=== PATIENT | female | born 1930 | race Caucasian/White ===

== ENCOUNTER 2016-09-15 10:47 | Inpatient (IN) | payer MEDICARE, OTHER ==
[2016-09-15 12:01] LABS: HEMATOCRIT 34.7 % (36.0-47.0); HEMOGLOBIN 11.9 g/dL (12.0-15.5); MEAN CORPUSCULAR HEMOGLOBIN 28.7 pg (27.0-33.4); MEAN CORPUSCULAR HGB CONC 34.4 g/dL (32.0-36.0); MEAN CORPUSCULAR VOLUME 83 fl (80-97); RED BLOOD COUNT 4.16 10^6/uL (3.72-5.28); RED CELL DISTRIBUTION WIDTH 13.6 % (11.5-14.0); WHITE BLOOD COUNT 11.4 10^3/uL (4.0-10.5)
[2016-09-15] MEDS: NORMAL SALINE 1000 ML 1,000 ML IV PRN (12:01)
[2016-09-15 12:13] LABS: ALANINE AMINOTRANSFERASE 48 U/L (9-52); ALBUMIN 3.5 g/dL (3.5-5.0); ALKALINE PHOSPHATASE 73 U/L (38-126); ASPARTATE AMINO TRANSFERASE 70 U/L (14-36); BILIRUBIN,DIRECT 0.4 mg/dL (0.0-0.4); BILIRUBIN,TOTAL 0.7 mg/dL (0.2-1.3); BLOOD UREA NITROGEN 15 mg/dL (7-20); CARBON DIOXIDE 28 mmol/L (22-30); CHLORIDE 79 mmol/L (98-107); CREATININE RESULT 0.79 mg/dL (0.52-1.25); GLUCOSE 106 mg/dL (75-110); POTASSIUM 3.4 mmol/L (3.6-5.0); TOTAL PROTEIN 6.6 g/dL (6.3-8.2)
[2016-09-15 12:29] LABS: ANION GAP 14 (5-19)
[2016-09-15 12:32] LABS: SODIUM 121.4 mmol/L (137-145)
[2016-09-15 12:44] LABS: THYROID STIMULATING HORMONE 3.48 uIU/mL (0.47-4.68)
--- NOTE | 2016-09-15 13:55 | RADIOLOGY REPORT (SQ) ---
EXAM DESCRIPTION: CHEST PA/LAT COMPLETED DATE/TIME: 09/15/2016 1:10 pm REASON FOR STUDY: CHF COMPARISON: Two-view chest 11/03/2009 EXAM PARAMETERS: NUMBER OF VIEWS: two views TECHNIQUE: Digital Frontal and Lateral radiographic views of the chest acquired. RADIATION DOSE: NA LIMITATIONS: none FINDINGS: LUNGS AND PLEURA: Minimal atelectasis or fluid in the right and left the lateral and poste rior costophrenic sulci. No fluffy alveolar infiltrates worrisome for alveolar edema. No Patsy lines worrisome for interstitial edema. No pneumothorax or pulmonary nodules. No dense consolidation worrisome for pneumonia. MEDIASTINUM AND HILAR STRUCTURES: No masses or contour abnormalities. HEART AND VASCULAR STRUCTURES: No cardiomegaly BONES: No acute findings. HARDWARE: None in the chest. OTHER: No other significant finding. IMPRESSION: Minimal opacification of the right and left lateral and posterior costophrenic sulci, tr magnolia pleural fluid versus atelectasis. TECHNICAL DOCUMENTATION: JOB ID: [id number] [employer]- All Rights Reserved
[2016-09-15 17:15] LABS: APPEARANCE,URINE CLEAR; BILIRUBIN,URINE NEGATIVE (NEGATIVE); GLUCOSE, URINE NEGATIVE (NEGATIVE); KETONES,URINE NEGATIVE (NEGATIVE); LEUKOCYTE ESTERASE,URINE TRACE (NEGATIVE); NITRITE,URINE NEGATIVE (NEGATIVE); PROTEIN,URINE NEGATIVE (NEGATIVE); URINE SPECIFIC GRAVITY 1.003; UROBILINOGEN,URINE NEGATIVE mg/dL (<2.0)
[2016-09-15] MEDS ORDERED: [UNRECOGNIZED DRUG - OTHER] PO SCH (17:15)
[2016-09-15] MEDS ORDERED: ASCORBATE CALCIUM PO SCH (17:15)
[2016-09-15 17:31] LABS: URINE CREATININE 26.3 mg/dL (15-278); URINE PROTEIN 28.1 mg/dL (<12)
[2016-09-15 17:34] LABS: URINE CREATININE 26.3 mg/dL (15-278); URINE PROTEIN 28.1 mg/dL (<12)
[2016-09-15] MEDS: METOPROLOL TARTRATE 50 MG TABLET PO SCH (17:41)
[2016-09-15] MEDS ORDERED: LANSOPRAZOLE 30 MG TAB.RAP.DR PO ONE (18:00)
--- NOTE | 2016-09-15 18:03 | XCELERA REPORT ---
[address] [address] Transthoracic Echocardiogram Report Name: WILBERT LOERA Age: 86 yrs Gender: Female : 1930 Patient Status: Inpatient Patient Location: 3S\S\327\S\A Study Date: 09/15/2016 02:32 PM Height: 63 in Weight: 160 lb BSA: 1.8 m2 Procedure: A complete two-dimensional transthoracic echocardiogram was performed (2D, M-mode, spectral and color flow Doppler). The study was technically difficult with many images being suboptimal in quality. Reason For Study: CHF Ordering Physician: MIGUEL SHAW Performed By: Alaina Kinney Interpretation Summary The left ventricular ejection fraction is normal. There is mild concentric left ventricular hypertrophy. Doppler measurements suggest impaired left ventricular relaxation, which is associated with grade I/IV or mild diastolic dysfunction The left ventricle is grossly normal size. Wall motion cannot be accurately commented on, but no definite regional wall motion abnormalities noted. The right atrium is normal in size The left atrial size is normal. The right ventricular systolic function is normal. There is no mitral valve stenosis. There is a mild amount of mitral regurgitation No aortic regurgitation is present. There is no aortic valve stenosis There is a trace or physiologic amount of tricuspid regurgitation Tricuspid regurgitation jet envelope not well defined to measure RV systolic pressure accurately. The aortic root is not well visualized but is probably normal size. The inferior vena cava appeared normal and decreased > 50% with respiration (RAP 5-10 mmHg) There is no pericardial effusion. MMode/2D Measurements \T\ Calculations RVDd: 2.4 cm LVIDd: 4.5 cm FS: 39.6 % Ao root diam: 2.9 cm IVSd: 1.1 cm LVIDs: 2.7 cm EDV(Teich): 92.1 ml LVPWd: 1.1 cm ESV(Teich): 27.4 ml Ao root area: 6.4 cm2 EF(Teich): 70.3 % LA dimension: 3.4 cm LVOT diam: 2.0 cm LVOT area: 3.1 cm2 Doppler Measurements \T\ Calculations MV E max carlos: MV P1/2t max carlos: Ao V2 max: LV V1 max P.0 cm/sec 77.0 cm/sec 147.2 cm/sec 5.2 mmHg MV A max carlos: MV P1/2t: 62.9 msec Ao max PG: LV V1 max: 102.7 cm/sec MVA(P1/2t): 3.5 cm2 8.7 mmHg 113.5 cm/sec MV E/A: 0.73 MV dec slope: JONE(V,D): 2.4 cm2 358.8 cm/sec2 TV V2 max: PA V2 max: 246.1 cm/sec 123.1 cm/sec TV max PG: PA max P.1 mmHg 24.2 mmHg Left Ventricle The left ventricle is grossly normal size. There is mild concentric left ventricular hypertrophy. The left ventricular ejection fraction is normal. Doppler measurements suggest impaired left ventricular relaxation, which is associated with grade I/IV or mild diastolic dysfunction. Wall motion cannot be accurately commented on, but no definite regional wall motion abnormalities noted. Right Ventricle The right ventricle is grossly normal size. There is normal right ventricular wall thickness. The right ventricular systolic function is normal. Atria The right atrium is normal in size. The left atrial size is normal. Interarterial septum not well visualized and not well dopplered. Cannot comment on ASD/PFO presence. Mitral Valve The mitral valve is grossly normal. There is no mitral valve stenosis. There is a mild amount of mitral regurgitation. Aortic Valve The aortic valve is grossly normal. There is no aortic valve stenosis. No aortic regurgitation is present. Tricuspid Valve The tricuspid valve is not well visualized, but is grossly normal. There is no tricuspid stenosis. There is a trace or physiologic amount of tricuspid regurgitation. Tricuspid regurgitation jet envelope not well defined to measure RV systolic pressure accurately. Pulmonic Valve The pulmonic valve is not well visualized. Great Vessels The aortic root is not well visualized but is probably normal size. The inferior vena cava appeared normal and decreased > 50% with respiration (RAP 5-10 mmHg). Effusions There is no pericardial effusion. : MIGUEL SHAW > Chelsy Swann
[2016-09-15] MEDS: SIMVASTATIN 10 MG TABLET PO SCH (21:08)
[2016-09-16 05:02] LABS: ANION GAP 11 (5-19); BLOOD UREA NITROGEN 10 mg/dL (7-20); CALCIUM 8.6 mg/dL (8.4-10.2); CARBON DIOXIDE 30 mmol/L (22-30); CHLORIDE 82 mmol/L (98-107); CREATININE RESULT 0.65 mg/dL (0.52-1.25); GLUCOSE 104 mg/dL (75-110); SODIUM 123.1 mmol/L (137-145)
[2016-09-16 05:06] LABS: POTASSIUM 2.9 mmol/L (3.6-5.0)
[2016-09-16] MEDS: METOPROLOL TARTRATE 50 MG TABLET PO SCH ×2 (05:47→16:46)
[2016-09-16] MEDS: POTASSIUM CHLORIDE 10 MEQ TABLET.SA PO SCH ×3 (06:08→14:00)
[2016-09-16] MEDS: LANSOPRAZOLE 30 MG TAB.RAP.DR PO SCH ×2 (07:42→16:46)
[2016-09-16] MEDS: CALCIUM CARBONATE 250 MG/VITAMIN D3 125 UNIT TABLET PO SCH (10:16)
[2016-09-16] MEDS: NIFEDIPINE 30 MG TAB.ER.24 PO SCH (10:18)
--- NOTE | 2016-09-16 11:35 | PDOC H&P ---
History of Present Illness Admission Date/PCP: 09/16/16 02:01 MIGUEL SHAW MD History of Present Illness: WILBERT LOERA is a 86 year old female, she has a history of hypertension, she came to the office with her spouse with multiple complaints including, dizziness , confusion, balance and gait disturbance. Patient spouse was concerned that she may have pulmonary embolism, he said when she pulmonary embolism years ago she presented in a similar fashion. Metabolic panel was done outpatient and it showed severe hyponatremia with sodium of 120, she was admitted directly from outpatient into the hospital. She is euvolemic, a 2D echo was done because of elevated BNP, 2D echo showed ejection fraction of left ventricle.The serum osmolality was low, the urine osmolality was elevated . This is consistent with syndrome of inappropriate secretion of antidiuretic hormone. Past Medical History Cardiac Medical History: Reports: DVT, Hyperlipidema, Hypertension, Pulmonary Embolism - ONPLAVIX SINCE 2002. GI Medical History: Reports: Diverticulitis Social History Smoking Status: Never Smoker Hx Recreational Drug Use: No Drugs: None Hx Prescription Drug Abuse: No - Advance Directive Resuscitation Status: Full Code Family History Family History: Reviewed & Not Pertinent Parental Family History Reviewed: Yes Children Family History Reviewed: Yes Sibling(s) Family History Reviewed.: Yes Medication/Allergy Home Medications: Ascorbate Calcium/Bioflav [Zee-C 500 mg Tablet] 1 each PO DAILY 02/16/12 Calcium Carbonate/Vitamin D3 [Calcium 600 + Vit D 400 Caplet] 1 each PO Q12 17/04 Cholecalciferol (Vitamin D3) [Vitamin D-400] 400 unit PO DAILY 02/16/12 Hydrochlorothiazide 25 mg PO DAILY 02/16/12 Krill Oil/[place]-3/Dha/Epa [[place]-3 Krill Oil Softgel] 1 each PO DAILY 02/16/12 Metoprolol Tartrate [Lopressor 50 mg Tablet] 25 mg PO Q12 02/16/12 Multivitamin [Tab-A-Hakan (Multiple Vitamin) Tablet] 1 tab PO DAILY 02/16/12 Nifedipine [Adalat CC 60 mg Tablet] 60 mg PO DAILY 02/16/12 Simvastatin [Zocor 10 mg Tablet] 10 mg PO QHS 02/16/12 Carboxymethylcellulose Sodium [Refresh Tears] 1 drop OP DAILYP PRN 09/16/16 Clopidogrel Bisulfate [Clopidogrel] 75 mg PO DAILY 09/16/16 Esomeprazole Magnesium [Nexium] 40 mg PO DAILY 09/16/16 Allergies/Adverse Reactions: DAVE Inhibitors [Dave Inhibitors] Allergy (Verified 04/29/13 13:56) ACEINHIBITORS [DAVE Inhibitors] Allergy (Verified 02/16/12 13:17) aspirin [Aspirin] Allergy (Verified 02/16/12 13:17) Review of Systems Constitutional: ABSENT: chills, fever(s), headache(s), weight gain, weight loss Eyes: ABSENT: visual disturbances Ears: ABSENT: hearing changes Cardiovascular: ABSENT: chest pain, dyspnea on exertion, edema, orthropnea, palpitations Respiratory: ABSENT: cough, hemoptysis Gastrointestinal: ABSENT: abdominal pain, constipation, diarrhea, hematemesis, hematochezia, nausea, vomiting Genitourinary: ABSENT: dysuria, hematuria Musculoskeletal: ABSENT: joint swelling Integumentary: ABSENT: rash, wounds Neurological: PRESENT: dizziness Psychiatric: ABSENT: anxiety, depression, homidical ideation, suicidal ideation Endocrine: ABSENT: cold intolerance, heat intolerance, menstrual abnormalities, polydipsia, polyuria Hematologic/Lymphatic: ABSENT: easy bleeding, easy bruising, lymphadenopathy Physical Exam Vital Signs: Temp Pulse Resp BP Pulse Ox 98.7 F 81 19 129/53 H 95 09/16/16 07:40 09/16/16 07:40 09/16/16 07:40 09/16/16 07:40 09/16/16 07:40 Intake & Output 09/15/16 09/16/16 09/17/16 06:59 06:59 06:59 Intake Total 1380 Output Total 2350 Balance -970 Weight 72.1 kg General appearance: PRESENT: no acute distress, well-developed, well-nourished Head exam: PRESENT: atraumatic, normocephalic Eye exam: PRESENT: conjunctiva pink, EOMI, PERRLA Ear exam: PRESENT: normal external ear exam Mouth exam: PRESENT: moist, tongue midline Neck exam: PRESENT: full ROM Respiratory exam: PRESENT: clear to auscultation matt Cardiovascular exam: PRESENT: RRR, +S1, +S2 Vascular exam: PRESENT: normal capillary refill GI/Abdominal exam: PRESENT: normal bowel sounds, soft Rectal exam: PRESENT: deferred Neurological exam: PRESENT: alert, awake, oriented to person, oriented to place , oriented to time, oriented to situation, CN II-XII grossly intact Psychiatric exam: PRESENT: appropriate affect, normal mood Skin exam: PRESENT: dry, intact, warm Results Laboratory Results: 09/15/16 11:36 09/16/16 04:28 09/15/16 09/15/16 09/15/16 11:36 11:36 11:36 WBC 11.4 H RBC 4.16 Hgb 11.9 L Hct 34.7 L MCV 83 MCH 28.7 MCHC 34.4 RDW 13.6 Plt Count 399 Sodium 121.4 L Potassium 3.4 L Chloride 79 L Carbon Dioxide 28 Anion Gap 14 BUN 15 Creatinine 0.79 Est GFR ( Amer) > 60 Est GFR (Non-Af Amer) > 60 Glucose 106 Serum Osmolality Cancelled Calcium 9.0 Total Bilirubin 0.7 AST 70 H ALT 48 Alkaline Phosphatase 73 Total Protein 6.6 Albumin 3.5 TSH Free T4 Urine Color Urine Appearance Urine pH Ur Specific [place] Urine Protein Urine Glucose (UA) Urine Ketones Urine Blood Urine Nitrite Ur Leukocyte Esterase Urine WBC (Auto) Urine Osmolality 09/15/16 09/15/16 09/15/16 11:36 14:22 17:00 WBC RBC Hgb Hct MCV MCH MCHC RDW Plt Count Sodium Potassium Chloride Carbon Dioxide Anion Gap BUN Creatinine Est GFR ( Amer) Est GFR (Non-Af Amer) Glucose Serum Osmolality 248 L Calcium Total Bilirubin AST ALT Alkaline Phosphatase Total Protein Albumin TSH 3.48 Free T4 1.60 Urine Color STRAW Urine Appearance CLEAR Urine pH 6.0 Ur Specific [place] 1.003 Urine Protein NEGATIVE Urine Glucose (UA) NEGATIVE Urine Ketones NEGATIVE Urine Blood NEGATIVE Urine Nitrite NEGATIVE Ur Leukocyte Esterase TRACE H Urine WBC (Auto) 6 Urine Osmolality 09/15/16 09/16/16 17:00 04:28 WBC RBC Hgb Hct MCV MCH MCHC RDW Plt Count Sodium 123.1 L Potassium 2.9 L* Chloride 82 L Carbon Dioxide 30 Anion Gap 11 BUN 10 Creatinine 0.65 Est GFR ( Amer) > 60 Est GFR (Non-Af Amer) > 60 Glucose 104 Serum Osmolality Calcium 8.6 Total Bilirubin AST ALT Alkaline Phosphatase Total Protein Albumin TSH Free T4 Urine Color Urine Appearance Urine pH Ur Specific [place] Urine Protein Urine Glucose (UA) Urine Ketones Urine Blood Urine Nitrite Ur Leukocyte Esterase Urine WBC (Auto) Urine Osmolality 177 L 09/15/16 11:36 NT-Pro-B Natriuret Pep 857 H Impressions: Chest X-Ray 09/15/16 00:00 IMPRESSION: Minimal opacification of the right and left lateral and posterior costophrenic sulci, trace pleural fluid versus atelectasis. 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
--- NOTE | 2016-09-16 11:46 | PDOC PROGRESS REPORT ---
Subjective Progress Note for:: 09/16/16 Subjective:: Patient was admitted yesterday because of severe hyponatremia, family was in the room, I explained to the family about her condition, the serum sodium is up to 123, Physical Exam Vital Signs: Temp Pulse Resp BP Pulse Ox 98.7 F 81 19 129/53 H 95 09/16/16 07:40 09/16/16 07:40 09/16/16 07:40 09/16/16 07:40 09/16/16 07:40 Intake & Output 09/15/16 09/16/16 09/17/16 06:59 06:59 06:59 Intake Total 1380 Output Total 2350 Balance -970 Weight 72.1 kg General appearance: PRESENT: no acute distress Eye exam: PRESENT: PERRLA Respiratory exam: PRESENT: clear to auscultation matt Cardiovascular exam: PRESENT: +S1, +S2 GI/Abdominal exam: PRESENT: soft Neurological exam: PRESENT: alert, CN II-XII grossly intact Results Laboratory Results: 09/15/16 11:36 09/16/16 04:28 09/15/16 09/15/16 09/15/16 11:36 11:36 11:36 WBC 11.4 H RBC 4.16 Hgb 11.9 L Hct 34.7 L MCV 83 MCH 28.7 MCHC 34.4 RDW 13.6 Plt Count 399 Sodium 121.4 L Potassium 3.4 L Chloride 79 L Carbon Dioxide 28 Anion Gap 14 BUN 15 Creatinine 0.79 Est GFR ( Amer) > 60 Est GFR (Non-Af Amer) > 60 Glucose 106 Serum Osmolality Cancelled Calcium 9.0 Total Bilirubin 0.7 AST 70 H ALT 48 Alkaline Phosphatase 73 Total Protein 6.6 Albumin 3.5 TSH Free T4 Urine Color Urine Appearance Urine pH Ur Specific [place] Urine Protein Urine Glucose (UA) Urine Ketones Urine Blood Urine Nitrite Ur Leukocyte Esterase Urine WBC (Auto) Urine Osmolality 09/15/16 09/15/16 09/15/16 11:36 14:22 17:00 WBC RBC Hgb Hct MCV MCH MCHC RDW Plt Count Sodium Potassium Chloride Carbon Dioxide Anion Gap BUN Creatinine Est GFR ( Amer) Est GFR (Non-Af Amer) Glucose Serum Osmolality 248 L Calcium Total Bilirubin AST ALT Alkaline Phosphatase Total Protein Albumin TSH 3.48 Free T4 1.60 Urine Color STRAW Urine Appearance CLEAR Urine pH 6.0 Ur Specific [place] 1.003 Urine Protein NEGATIVE Urine Glucose (UA) NEGATIVE Urine Ketones NEGATIVE Urine Blood NEGATIVE Urine Nitrite NEGATIVE Ur Leukocyte Esterase TRACE H Urine WBC (Auto) 6 Urine Osmolality 09/15/16 09/16/16 17:00 04:28 WBC RBC Hgb Hct MCV MCH MCHC RDW Plt Count Sodium 123.1 L Potassium 2.9 L* Chloride 82 L Carbon Dioxide 30 Anion Gap 11 BUN 10 Creatinine 0.65 Est GFR ( Amer) > 60 Est GFR (Non-Af Amer) > 60 Glucose 104 Serum Osmolality Calcium 8.6 Total Bilirubin AST ALT Alkaline Phosphatase Total Protein Albumin TSH Free T4 Urine Color Urine Appearance Urine pH Ur Specific [place] Urine Protein Urine Glucose (UA) Urine Ketones Urine Blood Urine Nitrite Ur Leukocyte Esterase Urine WBC (Auto) Urine Osmolality 177 L 09/15/16 11:36 NT-Pro-B Natriuret Pep 857 H Impressions: Chest X-Ray 09/15/16 00:00 IMPRESSION: Minimal opacification of the right and left lateral and posterior costophrenic sulci, trace pleural fluid versus atelectasis. 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
[2016-09-16] MEDS: CHOLECALCIFEROL (D3) 400 UNIT TABLET PO SCH (13:59)
[2016-09-16] MEDS ORDERED: CARBOXYMETHYLCELLULOSE SOD 0.5% 0.4 ML DROPERETTE OU PRN (15:49)
--- NOTE | 2016-09-16 16:24 | XCELERA REPORT ---
[address] [address] Lower Extremity Venous Evaluation Name: WILBERT LOERA Age: 86 yrs Gender: Female : 1930 Patient Status: Inpatient Patient Location: 3S\S\327\S\A Study Date: 09/15/2016 03:28 PM Procedure: Color flow and duplex imaging bilaterally of the veins of the lower extremities as well as the Common Femoral veins. Reason For Study: lower extremity swelling Ordering Physician: MIGUEL SHAW Performed By: Alaina Kinney Right Sided Venous Evaluation Normal vessel filling wall to wall, compression and augmentation as well as Colour flow down to the infrageniculate veins. Left Sided Venous Evaluation Normal vessel filling wall to wall, compression and augmentation as well as Colour flow down to the infrageniculate veins. Interpretation Summary No duplex evidence of DVT or obstruction in the bilateral lower extremities. : MIGUEL SHAW > Zia Winter
[2016-09-16] MEDS: NORMAL SALINE 1000 ML 1,000 ML IV PRN (21:46)
[2016-09-16] MEDS: SIMVASTATIN 10 MG TABLET PO SCH (21:46)
[2016-09-17] MEDS: METOPROLOL TARTRATE 50 MG TABLET PO SCH (06:28)
[2016-09-17] MEDS: LANSOPRAZOLE 30 MG TAB.RAP.DR PO SCH (08:02)
[2016-09-17 09:12] LABS: HEMATOCRIT 38.8 % (36.0-47.0); HGB HCT DIFFERENCE 0.2; MEAN CORPUSCULAR HEMOGLOBIN 28.9 pg (27.0-33.4); MEAN CORPUSCULAR HGB CONC 33.6 g/dL (32.0-36.0); MEAN CORPUSCULAR VOLUME 86 fl (80-97); RED BLOOD COUNT 4.52 10^6/uL (3.72-5.28); RED CELL DISTRIBUTION WIDTH 13.9 % (11.5-14.0); WHITE BLOOD COUNT 12.9 10^3/uL (4.0-10.5)
[2016-09-17] MEDS: CALCIUM CARBONATE 250 MG/VITAMIN D3 125 UNIT TABLET PO SCH (09:23)
[2016-09-17] MEDS: NIFEDIPINE 30 MG TAB.ER.24 PO SCH (09:23)
[2016-09-17] MEDS: CHOLECALCIFEROL (D3) 400 UNIT TABLET PO SCH (09:23)
[2016-09-17 09:33] LABS: ANION GAP 13 (5-19); BLOOD UREA NITROGEN 10 mg/dL (7-20); CARBON DIOXIDE 27 mmol/L (22-30); CHLORIDE 86 mmol/L (98-107); CREATININE RESULT 0.62 mg/dL (0.52-1.25); GLUCOSE 106 mg/dL (75-110); POTASSIUM 4.2 mmol/L (3.6-5.0); SODIUM 125.6 mmol/L (137-145)
[2016-09-17] MEDS ORDERED: CLOPIDOGREL BISULFATE 75 MG TABLET PO SCH (10:00)
--- NOTE | 2016-09-17 12:02 | PDOC DISCHARGE SUMMARY ---
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 Is this a current diagnosis for this admission?: Yes (3) Essential hypertension Is this a current diagnosis for this admission?: Yes - Additional Information Resuscitation Status: Full Code Discharge Diet: As Tolerated Discharge Activity: Activity As Tolerated Home Medications: Ascorbate Calcium/Bioflav [Zee-C 500 mg Tablet] 1 each PO DAILY 02/16/12 Calcium Carbonate/Vitamin D3 [Calcium 600 + Vit D 400 Caplet] 1 each PO Q12 17/04 Cholecalciferol (Vitamin D3) [Vitamin D-400] 400 unit PO DAILY 02/16/12 Krill Oil/[place]-3/Dha/Epa [[place]-3 Krill Oil Softgel] 1 each PO DAILY 02/16/12 Metoprolol Tartrate [Lopressor 50 mg Tablet] 25 mg PO Q12 02/16/12 Multivitamin [Tab-A-Hakan (Multiple Vitamin) Tablet] 1 tab PO DAILY 02/16/12 Nifedipine [Adalat CC 60 mg Tablet] 60 mg PO DAILY 02/16/12 Simvastatin [Zocor 10 mg Tablet] 10 mg PO QHS 02/16/12 Carboxymethylcellulose Sodium [Refresh Tears] 1 drop OP DAILYP PRN 09/16/16 Clopidogrel Bisulfate [Clopidogrel] 75 mg PO DAILY 09/16/16 Esomeprazole Magnesium [Nexium] 40 mg PO DAILY 09/16/16 History of Present Illness History of Present Illness: WILBERT LOERA is a 86 year old female, she has a history of hypertension, she came to the office with her spouse with multiple complaints including, dizziness , confusion, balance and gait disturbance. Patient spouse was concerned that she may have pulmonary embolism, he said when she pulmonary embolism years ago she presented in a similar fashion. Metabolic panel was done outpatient and it showed severe hyponatremia with sodium of 120, she was admitted directly from outpatient into the hospital. She is euvolemic, a 2D echo was done because of elevated BNP, 2D echo showed ejection fraction of left ventricle.The serum osmolality was low, the urine osmolality was elevated . This is consistent with syndrome of inappropriate secretion of antidiuretic hormone. Hospital Course Hospital Course: Patient was admitted because of symptomatic hyponatremia, she is euvolemic, she has syndrome of inappropriate secretion of ADH. On admission the sodium was 120 , she was treated with normal saline at a low infusion rate to achieve serum sodium 125. She will be treated with fluid restriction at not more than 6, 8 ounces of water a day. Physical Exam Vital Signs: Temp Pulse Resp BP Pulse Ox 98.3 F 83 20 127/53 H 97 09/17/16 08:26 09/17/16 08:26 09/17/16 08:26 09/17/16 08:26 09/17/16 08:26 Intake & Output 09/16/16 09/17/16 09/18/16 06:59 06:59 06:59 Intake Total 1380 2158 Output Total 2350 1500 Balance -970 658 Weight 72.1 kg 72.2 kg General appearance: PRESENT: no acute distress, well-developed, well-nourished Head exam: PRESENT: atraumatic, normocephalic Eye exam: PRESENT: conjunctiva pink, EOMI, PERRLA Ear exam: PRESENT: normal external ear exam Mouth exam: PRESENT: moist, tongue midline Neck exam: PRESENT: full ROM Respiratory exam: PRESENT: clear to auscultation matt Cardiovascular exam: PRESENT: RRR, +S1, +S2 Pulses: PRESENT: normal dorsalis pedis pul, +2 pedal pulses bilateral Vascular exam: PRESENT: normal capillary refill GI/Abdominal exam: PRESENT: normal bowel sounds, soft Rectal exam: PRESENT: deferred Neurological exam: PRESENT: alert, awake, oriented to person, oriented to place , oriented to time, oriented to situation, CN II-XII grossly intact Psychiatric exam: PRESENT: appropriate affect, normal mood Skin exam: PRESENT: dry, intact, warm Results Laboratory Results: 09/17/16 09:05 09/17/16 09:05 09/17/16 09/17/16 09:05 09:05 WBC 12.9 H RBC 4.52 Hgb 13.0 Hct 38.8 MCV 86 MCH 28.9 MCHC 33.6 RDW 13.9 Plt Count 468 H Sodium 125.6 L Potassium 4.2 Chloride 86 L Carbon Dioxide 27 Anion Gap 13 BUN 10 Creatinine 0.62 Est GFR ( Amer) > 60 Est GFR (Non-Af Amer) > 60 Glucose 106 Calcium 9.0 09/15/16 11:36 NT-Pro-B Natriuret Pep 857 H Impressions: Chest X-Ray 09/15/16 00:00 IMPRESSION: Minimal opacification of the right and left lateral and posterior costophrenic sulci, trace pleural fluid versus atelectasis.
[2016-09-17 13:08] VITALS: BP 139/66
== END 2016-09-17 13:10 | disposition home or self-care (01) | DRG 645 ==
LOC: 3S 10:47 → UNDOADMOB 10:47 → 3S 09-16 02:01 → OBSVTOIN 09-17 08:54
PROVIDERS: ADMIT Internal Medicine; ATTEND Internal Medicine
DX: E22.2 Syndrome of inappropriate secretion of antidiuretic hormone (principal); I10 Essential (primary) hypertension; Z86.711 Personal history of pulmonary embolism; Z86.718 Personal history of other venous thrombosis and embolism; E78.5 Hyperlipidemia, unspecified; Z79.02 Long term (current) use of antithrombotics/antiplatelets; Z79.82 Long term (current) use of aspirin; Z79.899 Other long term (current) drug therapy; Z88.8 Allergy status to other drugs, medicaments and biological substances
CPT/HCPCS: 36415; 71020; 80048; 80076; 81001; 82570; 83880; 83930; 83935; 84133; 84156; 84300; 84439; 84443; 85027; 85379; 93306; 93970; G0378; G0379; J3490; J7030

== ENCOUNTER 2019-05-09 17:13 | Inpatient (IN) | payer MEDICARE, OTHER ==
[2019-05-09] MEDS ORDERED: NORMAL SALINE 1000 ML 1,000 ML IV PRN (17:51)
[2019-05-09 19:01] LABS: ABSOLUTE LYMPHOCYTES (AUTO) 1.2 10^3/uL (0.5-4.7); ABSOLUTE MONOCYTES (AUTO) 0.9 10^3/uL (0.1-1.4); ABSOLUTE NEUT (AUTO) 7.5 10^3/uL (1.7-8.2); BASOPHILS % (AUTO) 0.2 % (0-2); EOSINOPHILS % (AUTO) 0.2 % (0-6); HEMATOCRIT 44.7 % (36.0-47.0); HEMOGLOBIN 16.2 g/dL (12.0-15.5); LYMPHOCYTES % (AUTO) 12.9 % (13-45); MEAN CORPUSCULAR HEMOGLOBIN 30.6 pg (27.0-33.4); MEAN CORPUSCULAR HGB CONC 36.2 g/dL (32.0-36.0); MEAN CORPUSCULAR VOLUME 85 fl (80-97); PLATELET COUNT 383 10^3/uL (150-450); RED BLOOD COUNT 5.29 10^6/uL (3.72-5.28); SEGMENTED NEUTROPHILS % (AUTO) 77.7 % (42-78); TOTAL CELLS COUNTED % (AUTO) 100 %; WHITE BLOOD COUNT 9.6 10^3/uL (4.0-10.5)
[2019-05-09 19:14] LABS: ANION GAP 14 (5-19); BLOOD UREA NITROGEN 14 mg/dL (7-20); CALCIUM 9.9 mg/dL (8.4-10.2); CARBON DIOXIDE 24 mmol/L (22-30); CHLORIDE 76 mmol/L (98-107); GLUCOSE 99 mg/dL (75-110)
[2019-05-09 19:31] LABS: FREE T4 (FREE THYROXINE) 1.2 ng/dL (0.78-2.19)
[2019-05-09 19:45] LABS: THYROID STIMULATING HORMONE 1.45 uIU/mL (0.47-4.68)
--- NOTE | 2019-05-09 20:03 | PDOC H&P ---
History of Present Illness Admission Date/PCP: 05/09/19 17:13 MIGUEL SHAW MD History of Present Illness: WILBERT LOERA is a 88 year old female, She was brought to the office by the and the daughter for evaluation of prolonged persistent cough, confusion, repeated fall. Patient's was particularly concerned that she may have pulmonary embolism, he said her behavior is similar to when she had pulmonary embolism previously. Patient was somewhat confused in the office, she was not able to relate most of her symptoms, most of the history was obtained from the and the daughter, she was in the wheelchair, typically she is very healthy she only come to the office once a year for annual wellness evaluation. I felt patient needed to be admitted to the hospital because of the acuity of her illness and because of her confusion. Though the oxygen saturat ion in the office was 92 to 95% despite the fact that on auscultation of the chest she sounds crackles/wheezing and rhonchi. The initial metabolic profile revealed severe hyponatremia, sodium 114.2. The serum osmolality is low but the urine osmolality is more than 100 consistent with SIADH in the context of normal extracellular volume.The family also stated that patient has been falling more frequently recently the last few days Past Medical History Cardiac Medical History: Reports: DVT, Hyperlipidema, Hypertension, Pulmonary Embolism - ONPLAVIX SINCE 2002. GI Medical History: Reports: Diverticulitis Social History Smoking Status: Former Smoker Electronic Cigarette use?: No Frequency of Alcohol Use: Rare Hx Recreational Drug Use: No Drugs: None Hx Prescription Drug Abuse: No Family History Family History: Reviewed & Not Pertinent Parental Family History Reviewed: Yes Children Family History Reviewed: Yes Sibling(s) Family History Reviewed.: Yes Medication/Allergy Home Medications: Cholecalciferol (Vitamin D3) [Vitamin D-400] 400 unit PO DAILY 02/16/12 Metoprolol Tartrate [Lopressor 50 mg Tablet] 25 mg PO Q12 02/16/12 Multivitamin [Tab-A-Hakan (Multiple Vitamin) Tablet] 1 tab PO DAILY 02/16/12 Nifedipine [Adalat CC 60 mg Tablet] 60 mg PO DAILY 02/16/12 Simvastatin [Zocor 10 mg Tablet] 10 mg PO QHS 02/16/12 Carboxymethylcellulose Sodium [Refresh Tears] 1 drop OP DAILYP PRN 09/16/16 Clopidogrel Bisulfate [Clopidogrel] 75 mg PO DAILY 09/16/16 Pantoprazole Sodium 40 mg PO QAM 05/09/19 Allergies/Adverse Reactions: DAVE Inhibitors [Dave Inhibitors] Allergy (Verified 04/29/13 13:56) ACEINHIBITORS [DAVE Inhibitors] Allergy (Verified 02/16/12 13:17) aspirin [Aspirin] Allergy (Verified 02/16/12 13:17) Review of Systems ROS unobtainable: Due to mental status Respiratory: PRESENT: cough Physical Exam Vital Signs: Temp Pulse Resp BP Pulse Ox 98.5 F 79 17 144/61 H 97 05/09/19 17:32 05/09/19 17:40 05/09/19 17:32 05/09/19 17:32 05/09/19 17:32 General appearance: PRESENT: mild distress Head exam: PRESENT: atraumatic, normocephalic Eye exam: PRESENT: PERRLA Mouth exam: PRESENT: moist Neck exam: PRESENT: full ROM Respiratory exam: PRESENT: crackles, rhonchi, wheezes Cardiovascular exam: PRESENT: RRR, +S1, +S2 Pulses: PRESENT: normal dorsalis pedis pul, +2 pedal pulses bilateral Vascular exam: PRESENT: normal capillary refill GI/Abdominal exam: PRESENT: normal bowel sounds, soft Rectal exam: PRESENT: deferred Neurological exam: PRESENT: CN II-XII grossly intact, other - She is alert but confused Skin exam: PRESENT: dry, intact, warm Results Laboratory Results: 05/09/19 18:18 05/09/19 18:26 05/09/19 05/09/19 05/09/19 18:18 18:18 18:26 WBC 9.6 RBC 5.29 H Hgb 16.2 H Hct 44.7 MCV 85 MCH 30.6 MCHC 36.2 H RDW 13.0 Plt Count 383 Seg Neutrophils % 77.7 Sodium 114.2 L* Potassium 4.0 Chloride 76 L Carbon Dioxide 24 Anion Gap 14 BUN 14 Creatinine 0.74 Est GFR ( Amer) > 60 Glucose 99 Calcium 9.9 TSH 1.45 Free T4 1.20 Assessment & Plan - Diagnosis (1) Aspiration pneumonia Qualifiers: Aspiration pneumonia type: unspecified Lung location: lower lobe of lung Is this a current diagnosis for this admission?: Yes Plan: The CT angiogram of the chest suggest aspiration pneumonia which is most likely the diagnosis in this case, she has severe hyponatremic encephalopathy, family said she has been very confused in the last few days she has been coughing consistently with repeated falls. When I saw her in the office she was coughing on auscultation of her chest there was crackles mixed with rhonchi and wheeze. The probable pathogen is anaerobic bacteria the antibiotic of choice will be ampicillin/sulbactam 1 g every 6 hours. 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
[2019-05-09] MEDS: NORMAL SALINE 1000 ML 1,000 ML IV PRN (20:07)
[2019-05-09] MEDS ORDERED: IPRATROPIUM/ALBUTEROL 0.5-2.5 MG/3 ML AMPUL NEB PRN (20:40)
[2019-05-09] MEDS ORDERED: NIFEDIPINE 60 MG PO SCH (21:30)
--- NOTE | 2019-05-09 21:33 | EKG REPORT ---
SEVERITY:- ABNORMAL ECG - SINUS RHYTHM MULTIFORM VENTRICULAR PREMATURE COMPLEXES NONSPECIFIC T ABNORMALITIES, LATERAL LEADS : Confirmed by: Latricia Westbrook MD 09-May-2019 21:32:47
[2019-05-09] MEDS ORDERED: ENOXAPARIN SODIUM INJ 80 MG/0.8 ML DISP.SYRIN SUBCUT SCH (22:00)
[2019-05-09] MEDS: METOPROLOL TARTRATE 50 MG TABLET PO SCH (22:35)
[2019-05-10 01:34] LABS: APPEARANCE,URINE SLIGHTLY-CLOUDY; BILIRUBIN,URINE NEGATIVE (NEGATIVE); COLOR,URINE YELLOW; GLUCOSE, URINE NEGATIVE (NEGATIVE); KETONES,URINE 20 mg/dL (NEGATIVE); LEUKOCYTE ESTERASE,URINE TRACE (NEGATIVE); NITRITE,URINE NEGATIVE (NEGATIVE); PROTEIN,URINE 100 mg/dL (NEGATIVE); URINE SPECIFIC GRAVITY 1.018; UROBILINOGEN,URINE NEGATIVE mg/dL (<2.0)
--- NOTE | 2019-05-10 01:39 | RADIOLOGY REPORT (SQ) ---
EXAM DESCRIPTION: [facility]: CT CHEST ANGIOGRAPHY WITHOUT THEN WITH IV CONTRAST CLINICAL HISTORY: 88 years Female; PNEUMONIA; TECHNIQUE: CT angiogram of the chest using intravenous contrast.. MIP reconstructions were performed. All CT scans at this facility use dose modulation, iterative reconstruction, and/or weight based dosing when appropriate to reduce radiation dose to as low as reasonably achievable. COMPARISON: None. FINDINGS: Chest: No filling defects in the central pulmonary arteries. There are several areas of subsegmental atelectasis in both lower lobes, with material seen in the distal bronchioles. No groundglass infiltrates. Mild bilateral apical scarring is noted. No pleural effusion or pneumothorax. Thoracic aorta: Mild scattered calcifications. No aneurysm or dissection. Mild to moderate coronary artery calcifications. No pericardial effusion. No mediastinal adenopathy. Chronic degenerative changes in the thoracic spine. No acute bone findings. Hiatal hernia is noted. No adjacent edema. IMPRESSION: 1. Patchy areas of atelectasis in both lower lobes, with endobronchial material suspicious for acute bronchitis. 2. No CT evidence for pulmonary embolism 3. Atherosclerosis, including coronary artery calcifications. 4. Hiatal hernia. Possibility of aspiration pneumonitis should be considered. Please correlate with recent clinical history.
[2019-05-10 02:54] LABS: URINE PROTEIN 76.7 mg/dL (<12)
[2019-05-10] MEDS ORDERED: AMPICILLIN SOD/SULBACTAM 3 GM VIAL IV PRN (03:36)
[2019-05-10] MEDS ORDERED: POLYVINYL ALCOHOL 1.4% OPH SOLN 15 ML OU PRN (03:45)
[2019-05-10] MEDS ORDERED: AMPICILLIN SODIUM/SULBACTAM NA 3 GM in NORMAL SALINE 100 ML IV ONE (03:45)
[2019-05-10 03:56] LABS: UR PRO/CREAT RATIO RESULT 1.4 mg/mg (0.0-0.2); URINE CREATININE 53.3 mg/dL (15-278); URINE PROTEIN 74.4 mg/dL (<12)
[2019-05-10] MEDS ORDERED: AMPICILLIN SOD/SULBACTAM 3 GM VIAL ONE (04:21)
[2019-05-10] MEDS: ENOXAPARIN SODIUM INJ 40 MG/0.4 ML DISP.SYRIN SUBCUT SCH (09:57)
[2019-05-10] MEDS: PANTOPRAZOLE SODIUM 40 MG TABLET.DR PO SCH (09:57)
[2019-05-10] MEDS: AMPICILLIN SODIUM/SULBACTAM NA 3 GM in NORMAL SALINE 100 ML IV SCH ×3 (09:57→21:26)
[2019-05-10] MEDS: MULTIVITAMIN TABLET PO SCH (09:58)
[2019-05-10] MEDS: METOPROLOL TARTRATE 50 MG TABLET PO SCH ×2 (09:58→21:27)
[2019-05-10] MEDS: CHOLECALCIFEROL (D3) 400 UNIT TABLET PO SCH (09:58)
[2019-05-10] MEDS: NIFEDIPINE 30 MG TAB.ER.24 PO SCH (09:58)
[2019-05-10] MEDS ORDERED: LEVOFLOXACIN 750 MG/D5W RTU 750 MG/150 ML RTUPB IV SCH (10:00)
[2019-05-10 10:48] LABS: ABSOLUTE LYMPHOCYTES (AUTO) 1.5 10^3/uL (0.5-4.7); TOTAL CELLS COUNTED % (AUTO) 100 %
[2019-05-10 10:57] LABS: ALBUMIN 3.7 g/dL (3.5-5.0); ALKALINE PHOSPHATASE 56 U/L (38-126); ASPARTATE AMINO TRANSFERASE 51 U/L (14-36); BILIRUBIN,DIRECT 0.3 mg/dL (0.0-0.4); BILIRUBIN,TOTAL 0.7 mg/dL (0.2-1.3); BLOOD UREA NITROGEN 11 mg/dL (7-20); CALCIUM 8.9 mg/dL (8.4-10.2); CARBON DIOXIDE 25 mmol/L (22-30); CHLORIDE 80 mmol/L (98-107); GLUCOSE 81 mg/dL (75-110); POTASSIUM 3.4 mmol/L (3.6-5.0); TOTAL PROTEIN 7.2 g/dL (6.3-8.2)
[2019-05-10 10:58] LABS: ANION GAP 13 (5-19)
[2019-05-10 11:04] LABS: ABSOLUTE NEUT (AUTO) 5.9 10^3/uL (1.7-8.2); BASOPHILS % (AUTO) 0.5 % (0-2); EOSINOPHILS % (AUTO) 0.3 % (0-6); HEMOGLOBIN 14.6 g/dL (12.0-15.5); LYMPHOCYTES % (AUTO) 18.3 % (13-45); MEAN CORPUSCULAR HEMOGLOBIN 30.3 pg (27.0-33.4); MEAN CORPUSCULAR HGB CONC 35.5 g/dL (32.0-36.0); MEAN CORPUSCULAR VOLUME 86 fl (80-97); MONOCYTES % (AUTO) 11.5 % (3-13); PLATELET COUNT 345 10^3/uL (150-450); RED CELL DISTRIBUTION WIDTH 12.7 % (11.5-14.0); SEGMENTED NEUTROPHILS % (AUTO) 69.4 % (42-78); WHITE BLOOD COUNT 8.5 10^3/uL (4.0-10.5)
[2019-05-10] MEDS: NORMAL SALINE 1000 ML 1,000 ML IV PRN (16:03)
--- NOTE | 2019-05-10 16:53 | PDOC PROGRESS REPORT ---
Subjective Progress Note for:: 05/10/19 Subjective:: Patient reported continued nonproductive cough with some amount of pleurisy. No fever, chills, nausea, vomiting, or abdominal pain. Reason For Visit: PNEUMONIA, RULE OUT PE, MULTI CO-MORBID CONDITIONS Physical Exam Vital Signs: Temp Pulse Resp BP Pulse Ox 97.6 F 95 17 149/60 H 94 05/10/19 15:57 05/10/19 15:57 05/10/19 15:57 05/10/19 15:57 05/10/19 15:57 Intake & Output 05/09/19 05/10/19 05/11/19 06:59 06:59 06:59 Intake Total 42 1537 Output Total 900 Balance -858 1537 Weight 71.9 kg 71.9 kg General appearance: PRESENT: no acute distress Head exam: PRESENT: atraumatic, normocephalic Eye exam: PRESENT: conjunctiva pink. ABSENT: scleral icterus Ear exam: PRESENT: normal external ear exam Mouth exam: PRESENT: moist Respiratory exam: PRESENT: clear to auscultation matt, decreased breath sounds - at lung bases Cardiovascular exam: PRESENT: RRR. ABSENT: diastolic murmur, rubs, systolic murmur Vascular exam: ABSENT: pallor GI/Abdominal exam: PRESENT: normal bowel sounds, soft. ABSENT: distended, guarding, mass, organolmegaly, rebound, tenderness Extremities exam: ABSENT: pedal edema Neurological exam: PRESENT: alert, awake, oriented to person, oriented to place, oriented to time, oriented to situation, CN II-XII grossly intact. ABSENT: motor sensory deficit Psychiatric exam: PRESENT: appropriate affect, normal mood. ABSENT: homicidal ideation, suicidal ideation Skin exam: PRESENT: dry, warm Results Laboratory Results: 05/10/19 05:29 05/10/19 05:29 05/09/19 05/09/19 05/09/19 18:18 18:18 18:26 WBC 9.6 RBC 5.29 H Hgb 16.2 H Hct 44.7 MCV 85 MCH 30.6 MCHC 36.2 H RDW 13.0 Plt Count 383 Seg Neutrophils % 77.7 Sodium 114.2 L* Potassium 4.0 Chloride 76 L Carbon Dioxide 24 Anion Gap 14 BUN 14 Creatinine 0.74 Est GFR ( Amer) > 60 Glucose 99 Serum Osmolality Calcium 9.9 Total Bilirubin AST Alkaline Phosphatase Total Protein Albumin TSH 1.45 Free T4 1.20 Urine Color Urine Appearance Urine pH Ur Specific [place] Urine Protein Urine Glucose (UA) Urine Ketones Urine Blood Urine Nitrite Ur Leukocyte Esterase Urine WBC (Auto) Urine RBC (Auto) Urine Osmolality 05/09/19 05/10/19 05/10/19 18:26 01:12 01:12 WBC RBC Hgb Hct MCV MCH MCHC RDW Plt Count Seg Neutrophils % Sodium Potassium Chloride Carbon Dioxide Anion Gap BUN Creatinine Est GFR ( Amer) Glucose Serum Osmolality 233 L Calcium Total Bilirubin AST Alkaline Phosphatase Total Protein Albumin TSH Free T4 Urine Color YELLOW Urine Appearance SLIGHTLY-CLOUDY Urine pH 6.0 Ur Specific [place] 1.018 Urine Protein 100 H Urine Glucose (UA) NEGATIVE Urine Ketones 20 H Urine Blood SMALL H Urine Nitrite NEGATIVE Ur Leukocyte Esterase TRACE H Urine WBC (Auto) 4 Urine RBC (Auto) 1 Urine Osmolality 299 L 05/10/19 05/10/19 05:29 05:29 WBC 8.5 RBC 4.80 Hgb 14.6 Hct 41.0 MCV 86 MCH 30.3 MCHC 35.5 RDW 12.7 Plt Count 345 Seg Neutrophils % 69.4 Sodium 118.1 L* Potassium 3.4 L Chloride 80 L Carbon Dioxide 25 Anion Gap 13 BUN 11 Creatinine 0.64 Est GFR ( Amer) > 60 Glucose 81 Serum Osmolality Calcium 8.9 Total Bilirubin 0.7 AST 51 H Alkaline Phosphatase 56 Total Protein 7.2 Albumin 3.7 TSH Free T4 Urine Color Urine Appearance Urine pH Ur Specific [place] Urine Protein Urine Glucose (UA) Urine Ketones Urine Blood Urine Nitrite Ur Leukocyte Esterase Urine WBC (Auto) Urine RBC (Auto) Urine Osmolality Impressions: Chest/Abdomen CTA 05/10/19 00:00 IMPRESSION: 1. Patchy areas of atelectasis in both lower lobes, with endobronchial material suspicious for acute bronchitis. 2. No CT evidence for pulmonary embolism 3. Atherosclerosis, including coronary artery calcifications. 4. Hiatal hernia. Possibility of aspiration pneumonitis should be considered. Please correlate with recent clinical history. Assessment & Plan - Diagnosis (1) Aspiration pneumonia Qualifiers: Aspiration pneumonia type: unspecified Lung location: lower lobe of lung Is this a current diagnosis for this admission?: Yes Plan: Continue Unasyn coverage. Encouraged use of incentive spirometer and flutter device. (2) Hyponatremia with decreased serum osmolality Is this a current diagnosis for this admission?: Yes Plan: Continue IV fluid normal saline infusion. (3) Metabolic encephalopathy Is this a current diagnosis for this admission?: Yes Plan: Probably related to his pneumonia and hyponatremia. (4) Syndrome of inappropriate ADH (SIADH) secretion Is this a current diagnosis for this admission?: Yes Plan: Probably related to her lung pathology with aspiration pneumonia. Continue to monitor her response to therapy. (5) Multiple falls Is this a current diagnosis for this admission?: Yes Plan: Request physical therapy for ambulatory safety and rehabilitation. (6) Essential hypertension Is this a current diagnosis for this admission?: Yes Plan: Continue current medication management. - Time Time Spent with patient: 35 or more minutes Level of Care: IMCU Medications reviewed and adjusted accordingly: Yes Anticipated discharge: Home with Homehealth Within: Other - Inpatient Certification Based on my medical assessment, after consideration of the patient's comorbidities, presenting symptoms, or acuity I expect that the services needed warrant INPATIENT care.: Yes I certify that my determination is in accordance with my understanding of Medicare's requirements for reasonable and necessary INPATIENT services [42 CFR 412.3e].: Yes Medical Necessity: Significant Comorbidiites Make Outpatient Treatment Too Risky, Need Close Monitoring Due to Risk of Patient Decompensation, Need For IV Fluids, Need For Continuous Telemetry Monitoring, Need for IV Antibiotics, Risk of Complication if Not Cared For in Hospital, Risk of Diagnosis Which Will Require Inpatient Eval/Care/Monitoring Post Hospital Care: D/C Psychiatric Rn Documentation - Plan Summary Plan Summary: Continue current medication management. Obtain CBC with diff and CMP in AM.
[2019-05-10] MEDS: SIMVASTATIN 10 MG TABLET PO SCH (21:26)
[2019-05-11] MEDS: AMPICILLIN SODIUM/SULBACTAM NA 3 GM in NORMAL SALINE 100 ML IV SCH ×4 (03:17→21:23)
[2019-05-11] MEDS: MULTIVITAMIN TABLET PO SCH (09:09)
[2019-05-11] MEDS: ENOXAPARIN SODIUM INJ 40 MG/0.4 ML DISP.SYRIN SUBCUT SCH (09:09)
[2019-05-11] MEDS: CHOLECALCIFEROL (D3) 400 UNIT TABLET PO SCH (09:09)
[2019-05-11] MEDS: PANTOPRAZOLE SODIUM 40 MG TABLET.DR PO SCH (09:10)
[2019-05-11] MEDS: NIFEDIPINE 30 MG TAB.ER.24 PO SCH (09:10)
[2019-05-11] MEDS: METOPROLOL TARTRATE 50 MG TABLET PO SCH ×2 (09:10→21:23)
[2019-05-11 11:01] LABS: ABSOLUTE BASOPHILS # (AUTO) 0.1 10^3/uL (0.0-0.2); ABSOLUTE MONOCYTES (AUTO) 0.9 10^3/uL (0.1-1.4); BASOPHILS % (AUTO) 1.1 % (0-2); EOSINOPHILS % (AUTO) 0.2 % (0-6); HEMATOCRIT 40.8 % (36.0-47.0); HEMOGLOBIN 14.6 g/dL (12.0-15.5); LYMPHOCYTES % (AUTO) 12.2 % (13-45); MEAN CORPUSCULAR HEMOGLOBIN 30.8 pg (27.0-33.4); MEAN CORPUSCULAR HGB CONC 35.9 g/dL (32.0-36.0); MEAN CORPUSCULAR VOLUME 86 fl (80-97); MONOCYTES % (AUTO) 10.9 % (3-13); PLATELET COUNT 368 10^3/uL (150-450); RED BLOOD COUNT 4.74 10^6/uL (3.72-5.28); RED CELL DISTRIBUTION WIDTH 12.7 % (11.5-14.0); SEGMENTED NEUTROPHILS % (AUTO) 75.6 % (42-78); TOTAL CELLS COUNTED % (AUTO) 100 %; WHITE BLOOD COUNT 7.9 10^3/uL (4.0-10.5)
[2019-05-11 11:12] LABS: ALBUMIN 3.5 g/dL (3.5-5.0); ALKALINE PHOSPHATASE 59 U/L (38-126); ANION GAP 9 (5-19); ASPARTATE AMINO TRANSFERASE 38 U/L (14-36); BILIRUBIN,TOTAL 0.6 mg/dL (0.2-1.3); BLOOD UREA NITROGEN 6 mg/dL (7-20); CARBON DIOXIDE 28 mmol/L (22-30); CHLORIDE 88 mmol/L (98-107); GLUCOSE 98 mg/dL (75-110); POTASSIUM 3.2 mmol/L (3.6-5.0); TOTAL PROTEIN 6.7 g/dL (6.3-8.2)
[2019-05-11] MEDS: NORMAL SALINE 1000 ML 1,000 ML IV PRN (15:05)
[2019-05-11] MEDS: POTASSIUM CHLORIDE 10 MEQ TABLET.ER PO SCH ×2 (17:06→18:40)
--- NOTE | 2019-05-11 17:12 | PDOC PROGRESS REPORT ---
Subjective Progress Note for:: 05/11/19 Subjective:: Patient denied any chest pain or difficulty with breathing. Less coughing spell. No fever or chills. No abdominal pain, nausea, vomiting, or abdominal pain. Reason For Visit: PNEUMONIA, RULE OUT PE, MULTI CO-MORBID CONDITIONS Physical Exam Vital Signs: Temp Pulse Resp BP Pulse Ox 98.0 F 68 17 124/47 L 94 05/11/19 11:57 05/11/19 11:57 05/11/19 11:57 05/11/19 11:57 05/11/19 11:57 Intake & Output 05/10/19 05/11/19 05/12/19 06:59 06:59 06:59 Intake Total 42 2417 1780 Output Total 900 1100 400 Balance -858 1317 1380 Weight 71.9 kg 64.2 kg Results Laboratory Results: 05/11/19 10:36 05/11/19 10:36 05/11/19 05/11/19 10:36 10:36 WBC 7.9 RBC 4.74 Hgb 14.6 Hct 40.8 MCV 86 MCH 30.8 MCHC 35.9 RDW 12.7 Plt Count 368 Seg Neutrophils % 75.6 Sodium 124.8 L Potassium 3.2 L Chloride 88 L Carbon Dioxide 28 Anion Gap 9 BUN 6 L Creatinine 0.65 Est GFR ( Amer) > 60 Glucose 98 Calcium 9.0 Total Bilirubin 0.6 AST 38 H Alkaline Phosphatase 59 Total Protein 6.7 Albumin 3.5 Impressions: Chest/Abdomen CTA 05/10/19 00:00 IMPRESSION: 1. Patchy areas of atelectasis in both lower lobes, with endobronchial material suspicious for acute bronchitis. 2. No CT evidence for pulmonary embolism 3. Atherosclerosis, including coronary artery calcifications. 4. Hiatal hernia. Possibility of aspiration pneumonitis should be considered. Please correlate with recent clinical history. Assessment & Plan - Diagnosis (1) Aspiration pneumonia Qualifiers: Aspiration pneumonia type: unspecified Lung location: lower lobe of lung Is this a current diagnosis for this admission?: Yes (2) Hyponatremia with decreased serum osmolality Is this a current diagnosis for this admission?: Yes (3) Metabolic encephalopathy Is this a current diagnosis for this admission?: Yes (4) Syndrome of inappropriate ADH (SIADH) secretion Is this a current diagnosis for this admission?: Yes (5) Multiple falls Is this a current diagnosis for this admission?: Yes (6) Essential hypertension Is this a current diagnosis for this admission?: Yes (7) Hypokalemia due to inadequate potassium intake Is this a current diagnosis for this admission?: Yes Plan: Patient will receive oral potassium replacement therapy. Obtain serum magnesium level. Repeat BMP in AM. - Time Time Spent with patient: 25-34 minutes Level of Care: IMCU Medications reviewed and adjusted accordingly: Yes Anticipated discharge: Home with Homehealth Within: Other - Inpatient Certification Based on my medical assessment, after consideration of the patient's comorbidities, presenting symptoms, or acuity I expect that the services needed warrant INPATIENT care.: Yes I certify that my determination is in accordance with my understanding of Medicare's requirements for reasonable and necessary INPATIENT services [42 CFR 412.3e].: Yes Medical Necessity: Significant Comorbidiites Make Outpatient Treatment Too Risky, Need Close Monitoring Due to Risk of Patient Decompensation, Need For IV Fluids, Need For Continuous Telemetry Monitoring, Need for IV Antibiotics, Risk of Complication if Not Cared For in Hospital, Risk of Diagnosis Which Will Require Inpatient Eval/Care/Monitoring Post Hospital Care: D/C Machine Operator Packaging Documentation - Plan Summary Plan Summary: Covering attending physician orders for details about care plan.
[2019-05-11] MEDS: SIMVASTATIN 10 MG TABLET PO SCH (21:25)
[2019-05-12] MEDS: AMPICILLIN SODIUM/SULBACTAM NA 3 GM in NORMAL SALINE 100 ML IV SCH ×4 (03:01→22:07)
[2019-05-12 04:53] LABS: APPEARANCE,URINE CLEAR; BILIRUBIN,URINE NEGATIVE (NEGATIVE); COLOR,URINE YELLOW; GLUCOSE, URINE NEGATIVE (NEGATIVE); KETONES,URINE NEGATIVE (NEGATIVE); LEUKOCYTE ESTERASE,URINE TRACE (NEGATIVE); NITRITE,URINE NEGATIVE (NEGATIVE); PROTEIN,URINE NEGATIVE (NEGATIVE); UROBILINOGEN,URINE NEGATIVE mg/dL (<2.0)
[2019-05-12 06:34] LABS: HEMATOCRIT 37.4 % (36.0-47.0); HEMOGLOBIN 13.3 g/dL (12.0-15.5); MEAN CORPUSCULAR HEMOGLOBIN 30.8 pg (27.0-33.4); MEAN CORPUSCULAR HGB CONC 35.7 g/dL (32.0-36.0); MEAN CORPUSCULAR VOLUME 86 fl (80-97); PLATELET COUNT 354 10^3/uL (150-450); RED BLOOD COUNT 4.33 10^6/uL (3.72-5.28); RED CELL DISTRIBUTION WIDTH 13.2 % (11.5-14.0); WHITE BLOOD COUNT 8.5 10^3/uL (4.0-10.5)
[2019-05-12] MEDS: PANTOPRAZOLE SODIUM 40 MG TABLET.DR PO SCH (09:40)
[2019-05-12] MEDS: METOPROLOL TARTRATE 50 MG TABLET PO SCH ×2 (09:41→22:07)
[2019-05-12] MEDS: MULTIVITAMIN TABLET PO SCH (09:41)
[2019-05-12] MEDS: NIFEDIPINE 30 MG TAB.ER.24 PO SCH (09:41)
[2019-05-12] MEDS: ENOXAPARIN SODIUM INJ 40 MG/0.4 ML DISP.SYRIN SUBCUT SCH (09:42)
[2019-05-12] MEDS: CHOLECALCIFEROL (D3) 400 UNIT TABLET PO SCH (09:42)
[2019-05-12 11:20] LABS: MEAN CORPUSCULAR HEMOGLOBIN 30.8 pg (27.0-33.4); MEAN CORPUSCULAR VOLUME 86 fl (80-97); PLATELET COUNT 364 10^3/uL (150-450); RED BLOOD COUNT 4.21 10^6/uL (3.72-5.28); RED CELL DISTRIBUTION WIDTH 13.1 % (11.5-14.0)
[2019-05-12 11:29] LABS: ALBUMIN 3.3 g/dL (3.5-5.0); ALKALINE PHOSPHATASE 45 U/L (38-126); ANION GAP 12 (5-19); ASPARTATE AMINO TRANSFERASE 35 U/L (14-36); BILIRUBIN,DIRECT 0.4 mg/dL (0.0-0.4); BILIRUBIN,TOTAL 0.6 mg/dL (0.2-1.3); BLOOD UREA NITROGEN 8 mg/dL (7-20); CALCIUM 8.7 mg/dL (8.4-10.2); CARBON DIOXIDE 23 mmol/L (22-30); CHLORIDE 93 mmol/L (98-107); GLUCOSE 120 mg/dL (75-110); TOTAL PROTEIN 6.6 g/dL (6.3-8.2)
[2019-05-12 11:36] LABS: POTASSIUM 4.3 mmol/L (3.6-5.0)
[2019-05-12 11:49] LABS: ABSOLUTE LYMPHOCYTES# (MANUAL) 1.4 10^3/uL (0.5-4.7); ABSOLUTE MONOCYTES # (MANUAL) 0.5 10^3/uL (0.1-1.4); BASOPHILS % (MANUAL) 0 % (0-2); EOSINOPHILS % (MANUAL) 1 % (0-6); LYMPHOCYTES % (MANUAL) 18 % (13-45); MONOCYTES % (MANUAL) 6 % (3-13); SEGMENTED NEUTROPHILS % (MAN) 75 % (42-78); TOTAL CELLS COUNTED 100
[2019-05-12 11:50] LABS: PLATELET CLUMPS PRESENT; PLATELET COMMENT ADEQUATE; RBC MORPHOLOGY COMMENT NORMO-CYTIC/CHROMIC
[2019-05-12] MEDS: TOLVAPTAN 15 MG TABLET PO SCH (18:38)
--- NOTE | 2019-05-12 20:16 | PDOC PROGRESS REPORT ---
Subjective Progress Note for:: 05/12/19 Subjective:: Patient seen by the bedside, she was admitted on Sunday for the management of aspiration pneumonia, severe hyponatremia, the serum sodium is 127 today the normal saline will be discontinued. She has a history of SIADH she will be started on tolvaptan for a total of 30 days according to FDA guidelines.She is still coughing Reason For Visit: PNEUMONIA, RULE OUT PE, MULTI CO-MORBID CONDITIONS Physical Exam Vital Signs: Temp Pulse Resp BP Pulse Ox 97.8 F 90 19 133/49 H 96 05/12/19 19:17 05/12/19 19:17 05/12/19 19:17 05/12/19 19:17 05/12/19 19:17 Intake & Output 05/11/19 05/12/19 05/13/19 06:59 06:59 06:59 Intake Total 2417 3380 740 Output Total 1100 1300 1400 Balance 1317 2080 -660 Weight 64.2 kg 74.8 kg General appearance: PRESENT: no acute distress Eye exam: PRESENT: PERRLA Respiratory exam: PRESENT: rhonchi Cardiovascular exam: PRESENT: +S1, +S2 GI/Abdominal exam: PRESENT: soft Neurological exam: PRESENT: alert Results Laboratory Results: 05/12/19 10:25 05/12/19 10:25 05/12/19 05/12/19 05/12/19 04:00 06:12 10:25 WBC 8.5 RBC 4.33 Hgb 13.3 Hct 37.4 MCV 86 MCH 30.8 MCHC 35.7 RDW 13.2 Plt Count 354 Seg Neutrophils % Sodium 127.6 L Potassium 4.3 D Chloride 93 L Carbon Dioxide 23 Anion Gap 12 BUN 8 Creatinine 0.84 Est GFR ( Amer) > 60 Glucose 120 H Calcium 8.7 Total Bilirubin 0.6 AST 35 Alkaline Phosphatase 45 Total Protein 6.6 Albumin 3.3 L Urine Color YELLOW Urine Appearance CLEAR Urine pH 7.0 Ur Specific [place] 1.010 Urine Protein NEGATIVE Urine Glucose (UA) NEGATIVE Urine Ketones NEGATIVE Urine Blood NEGATIVE Urine Nitrite NEGATIVE Ur Leukocyte Esterase TRACE H Urine WBC (Auto) 6 05/12/19 10:25 WBC 8.0 RBC 4.21 Hgb 13.0 Hct 36.0 MCV 86 MCH 30.8 MCHC 36.0 RDW 13.1 Plt Count 364 Seg Neutrophils % Not Reportable Sodium Potassium Chloride Carbon Dioxide Anion Gap BUN Creatinine Est GFR ( Amer) Glucose Calcium Total Bilirubin AST Alkaline Phosphatase Total Protein Albumin Urine Color Urine Appearance Urine pH Ur Specific [place] Urine Protein Urine Glucose (UA) Urine Ketones Urine Blood Urine Nitrite Ur Leukocyte Esterase Urine WBC (Auto) 05/10/19 01:12 Clean Catch Midstream Urine Culture - Final Urogenital Nelli Impressions: Chest/Abdomen CTA 05/10/19 00:00 IMPRESSION: 1. Patchy areas of atelectasis in both lower lobes, with endobronchial material suspicious for acute bronchitis. 2. No CT evidence for pulmonary embolism 3. Atherosclerosis, including coronary artery calcifications. 4. Hiatal hernia. Possibility of aspiration pneumonitis should be considered. Please correlate with recent clinical history. 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 daily for a total of 30 days (4) Multiple falls Is this a current diagnosis for this admission?: Yes (5) Hyponatremia with decreased serum osmolality Is this a current diagnosis for this admission?: Yes Plan: Discontinue normal saline infusion - Time Time Spent with patient: 25-34 minutes
[2019-05-12] MEDS: SIMVASTATIN 10 MG TABLET PO SCH (22:13)
[2019-05-12 23:23] LABS: APPEARANCE,URINE CLEAR; BILIRUBIN,URINE NEGATIVE (NEGATIVE); COLOR,URINE STRAW; GLUCOSE, URINE NEGATIVE (NEGATIVE); KETONES,URINE NEGATIVE (NEGATIVE); LEUKOCYTE ESTERASE,URINE NEGATIVE (NEGATIVE); NITRITE,URINE NEGATIVE (NEGATIVE); PROTEIN,URINE NEGATIVE (NEGATIVE); URINE SPECIFIC GRAVITY 1.005; UROBILINOGEN,URINE NEGATIVE mg/dL (<2.0)
[2019-05-13] MEDS: AMPICILLIN SODIUM/SULBACTAM NA 3 GM in NORMAL SALINE 100 ML IV SCH ×4 (03:11→22:29)
[2019-05-13] MEDS: PANTOPRAZOLE SODIUM 40 MG TABLET.DR PO SCH (10:24)
[2019-05-13] MEDS: METOPROLOL TARTRATE 50 MG TABLET PO SCH ×2 (10:24→22:30)
[2019-05-13] MEDS: MULTIVITAMIN TABLET PO SCH (10:25)
[2019-05-13] MEDS: NIFEDIPINE 30 MG TAB.ER.24 PO SCH (10:25)
[2019-05-13] MEDS: CHOLECALCIFEROL (D3) 400 UNIT TABLET PO SCH (10:29)
[2019-05-13] MEDS: ENOXAPARIN SODIUM INJ 40 MG/0.4 ML DISP.SYRIN SUBCUT SCH (10:32)
[2019-05-13 12:29] LABS: ALBUMIN 3.6 g/dL (3.5-5.0); ALKALINE PHOSPHATASE 51 U/L (38-126); ANION GAP 8 (5-19); ASPARTATE AMINO TRANSFERASE 39 U/L (14-36); BILIRUBIN,TOTAL 0.4 mg/dL (0.2-1.3); BLOOD UREA NITROGEN 9 mg/dL (7-20); CALCIUM 9.2 mg/dL (8.4-10.2); CARBON DIOXIDE 26 mmol/L (22-30); CHLORIDE 97 mmol/L (98-107); GLUCOSE 81 mg/dL (75-110); HEMATOCRIT 36.2 % (36.0-47.0); HEMOGLOBIN 12.8 g/dL (12.0-15.5); MEAN CORPUSCULAR HEMOGLOBIN 30.5 pg (27.0-33.4); MEAN CORPUSCULAR HGB CONC 35.3 g/dL (32.0-36.0); MEAN CORPUSCULAR VOLUME 86 fl (80-97); PLATELET COUNT 404 10^3/uL (150-450); POTASSIUM 4.3 mmol/L (3.6-5.0); RED BLOOD COUNT 4.19 10^6/uL (3.72-5.28); RED CELL DISTRIBUTION WIDTH 13.1 % (11.5-14.0); TOTAL PROTEIN 6.8 g/dL (6.3-8.2); WHITE BLOOD COUNT 7.9 10^3/uL (4.0-10.5)
[2019-05-13 13:19] LABS: ABSOLUTE LYMPHOCYTES# (MANUAL) 2.4 10^3/uL (0.5-4.7); ABSOLUTE MONOCYTES # (MANUAL) 0.4 10^3/uL (0.1-1.4); BASOPHILS % (MANUAL) 0 % (0-2); EOSINOPHILS % (MANUAL) 0 % (0-6); LYMPHOCYTES % (MANUAL) 24 % (13-45); MONOCYTES % (MANUAL) 5 % (3-13); SEGMENTED NEUTROPHILS % (MAN) 65 % (42-78); TOTAL CELLS COUNTED 100
[2019-05-13 13:20] LABS: PLATELET COMMENT ADEQUATE; RBC MORPHOLOGY COMMENT NORMO-CYTIC/CHROMIC
[2019-05-13 15:36] LABS: ALBUMIN 3 3.3 g/dL (2.9-4.4); ALPHA-1-GLOBULIN 0.3 g/dL (0.0-0.4); BETA GLOBULIN 0.9 g/dL (0.7-1.3); GAMMA GLOBULINS 1.2 g/dL (0.4-1.8); IMMUNOGLOBULIN A 272 mg/dL (64-422); IMMUNOGLOBULIN G 1160 mg/dL (700-1600); IMMUNOGLOBULIN M 140 mg/dL (26-217); MONOCLONAL-SPIKE Not Observed g/dL (Not Observ); PROTEIN TOTAL SERUM 6.7 g/dL (6.0-8.5)
[2019-05-13 15:36] LABS: ALBUMIN UR 65.8 % (.); ALPHA-1-GLOBULIN URINE 5.9 % (.); ALPHA-2-GLOBULIN URINE 6.6 % (.); GAMMA GLOBULIN URINE 9.9 % (.); M-SPIKE % UR Not Observed % (Not Observ); PROTEIN TOTAL URINE 41.6 mg/dL (Not Estab.)
[2019-05-13] MEDS: TOLVAPTAN 15 MG TABLET PO SCH (17:56)
--- NOTE | 2019-05-13 20:46 | PDOC PROGRESS REPORT ---
Subjective Progress Note for:: 05/13/19 Subjective:: Patient seen by the bedside, she continues to make improvement Reason For Visit: PNEUMONIA, RULE OUT PE, MULTI CO-MORBID CONDITIONS Physical Exam Vital Signs: Temp Pulse Resp BP Pulse Ox 97.8 F 82 18 130/50 H 98 05/13/19 19:20 05/13/19 19:20 05/13/19 19:20 05/13/19 19:20 05/13/19 19:20 Intake & Output 05/12/19 05/13/19 05/14/19 06:59 06:59 06:59 Intake Total 3380 2240 934 Output Total 1300 4330 1300 Balance 2079 Weight 74.8 kg 74.2 kg General appearance: PRESENT: no acute distress Eye exam: PRESENT: PERRLA Respiratory exam: PRESENT: clear to auscultation matt Cardiovascular exam: PRESENT: +S1, +S2 GI/Abdominal exam: PRESENT: soft Neurological exam: PRESENT: alert, CN II-XII grossly intact Results Laboratory Results: 05/13/19 11:55 05/13/19 11:55 05/12/19 05/13/19 05/13/19 22:28 11:55 11:55 WBC 7.9 RBC 4.19 Hgb 12.8 Hct 36.2 MCV 86 MCH 30.5 MCHC 35.3 RDW 13.1 Plt Count 404 Seg Neutrophils % Not Reportable Sodium 131.4 L Potassium 4.3 Chloride 97 L Carbon Dioxide 26 Anion Gap 8 BUN 9 Creatinine 0.78 Est GFR ( Amer) > 60 Glucose 81 Calcium 9.2 Total Bilirubin 0.4 AST 39 H Alkaline Phosphatase 51 Total Protein 6.8 Albumin 3.6 Urine Color [place] Urine Appearance CLEAR Urine pH 7.0 Ur Specific [place] 1.005 Urine Protein NEGATIVE Urine Glucose (UA) NEGATIVE Urine Ketones NEGATIVE Urine Blood NEGATIVE Urine Nitrite NEGATIVE Ur Leukocyte Esterase NEGATIVE Urine WBC (Auto) 2 Urine RBC (Auto) 1 Impressions: Chest/Abdomen CTA 05/10/19 00:00 IMPRESSION: 1. Patchy areas of atelectasis in both lower lobes, with endobronchial material suspicious for acute bronchitis. 2. No CT evidence for pulmonary embolism 3. Atherosclerosis, including coronary artery calcifications. 4. Hiatal hernia. Possibility of aspiration pneumonitis should be considered. Please correlate with recent clinical history. 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
--- NOTE | 2019-05-13 21:30 | RADIOLOGY REPORT (SQ) ---
AP Portable chest: 05/13/2019 8:28 PM HOME CARE LIAISON History: 88-year old patient with concern for pneumonia. Comparison: Chest radiograph performed 09/15/2016. Findings: The cardiomediastinal silhouette is enlarged. No pneumothorax is seen. There are airspace opacities within the left lung base associated with trace left effusion. Atherosclerotic calcifications are seen at the aortic arch. Impression: There are airspace opacities at the left lung base associated with a trace left effusion.
[2019-05-13] MEDS: SIMVASTATIN 10 MG TABLET PO SCH (22:30)
[2019-05-14] MEDS: AMPICILLIN SODIUM/SULBACTAM NA 3 GM in NORMAL SALINE 100 ML IV SCH ×3 (03:36→16:39)
[2019-05-14 05:38] LABS: HEMOGLOBIN 13.8 g/dL (12.0-15.5); MEAN CORPUSCULAR HEMOGLOBIN 30.8 pg (27.0-33.4); MEAN CORPUSCULAR HGB CONC 35.3 g/dL (32.0-36.0); MEAN CORPUSCULAR VOLUME 87 fl (80-97); PLATELET COUNT 419 10^3/uL (150-450); RED BLOOD COUNT 4.47 10^6/uL (3.72-5.28); RED CELL DISTRIBUTION WIDTH 13.1 % (11.5-14.0); WHITE BLOOD COUNT 8.2 10^3/uL (4.0-10.5)
[2019-05-14] MEDS: PANTOPRAZOLE SODIUM 40 MG TABLET.DR PO SCH (08:33)
[2019-05-14] MEDS: NIFEDIPINE 30 MG TAB.ER.24 PO SCH (09:03)
[2019-05-14] MEDS: METOPROLOL TARTRATE 50 MG TABLET PO SCH (09:04)
[2019-05-14] MEDS: CHOLECALCIFEROL (D3) 400 UNIT TABLET PO SCH (09:05)
[2019-05-14] MEDS: ENOXAPARIN SODIUM INJ 40 MG/0.4 ML DISP.SYRIN SUBCUT SCH (09:05)
[2019-05-14] MEDS: MULTIVITAMIN TABLET PO SCH (09:05)
[2019-05-14 09:29] LABS: ALKALINE PHOSPHATASE 53 U/L (38-126); ANION GAP 12 (5-19); ASPARTATE AMINO TRANSFERASE 43 U/L (14-36); BILIRUBIN,DIRECT 0.4 mg/dL (0.0-0.4); BILIRUBIN,TOTAL 0.7 mg/dL (0.2-1.3); BLOOD UREA NITROGEN 12 mg/dL (7-20); CALCIUM 9.9 mg/dL (8.4-10.2); CARBON DIOXIDE 26 mmol/L (22-30); CHLORIDE 97 mmol/L (98-107); GLUCOSE 113 mg/dL (75-110); POTASSIUM 4.3 mmol/L (3.6-5.0); TOTAL PROTEIN 7.3 g/dL (6.3-8.2)
[2019-05-14 13:36] LABS: APPEARANCE,URINE CLEAR; BILIRUBIN,URINE NEGATIVE (NEGATIVE); COLOR,URINE STRAW; GLUCOSE, URINE NEGATIVE (NEGATIVE); KETONES,URINE NEGATIVE (NEGATIVE); LEUKOCYTE ESTERASE,URINE NEGATIVE (NEGATIVE); NITRITE,URINE NEGATIVE (NEGATIVE); PROTEIN,URINE NEGATIVE (NEGATIVE); URINE SPECIFIC GRAVITY 1.008; UROBILINOGEN,URINE NEGATIVE mg/dL (<2.0)
[2019-05-14 16:40] VITALS: BP 146/61
--- NOTE | 2019-05-14 17:29 | PDOC DISCHARGE SUMMARY ---
Impression - Admit/DC Date/PCP Admission Date/Primary Care Provider: 05/09/19 17:13 MIGUEL SHAW MD Discharge Date: 05/14/19 - Discharge Diagnosis (1) Aspiration pneumonia Is this a current diagnosis for this admission?: Yes (2) Metabolic encephalopathy Is this a current diagnosis for this admission?: Yes (3) Syndrome of inappropriate ADH (SIADH) secretion Is this a current diagnosis for this admission?: Yes (4) Multiple falls Is this a current diagnosis for this admission?: Yes (5) Hyponatremia with decreased serum osmolality Is this a current diagnosis for this admission?: Yes - Additional Information Discharge Diet: As Tolerated, Regular Discharge Activity: Activity As Tolerated, Balance Activity w/Rest Referrals: MIGUEL SHAW MD [Primary Care Provider] - 05/23/19 10:15 am Prescriptions: Acetaminophen with Codeine [Acetaminop-Codein 240-24 mg/10] 10 ml PO Q8H #200 ml Amox Tr/Potassium Clavulanate [Augmentin 875-125 mg Tablet] 1 tab PO BID #10 tablet Tolvaptan [Samsca 15 mg Tablet] 15 mg PO QPM #30 tablet Home Medications: Cholecalciferol (Vitamin D3) [Vitamin D-400] 400 unit PO DAILY 02/16/12 Metoprolol Tartrate [Lopressor 50 mg Tablet] 25 mg PO Q12 02/16/12 Multivitamin [Tab-A-Hakan (Multiple Vitamin) Tablet] 1 tab PO DAILY 02/16/12 Nifedipine [Adalat CC 60 mg Tablet] 60 mg PO DAILY 02/16/12 Simvastatin [Zocor 10 mg Tablet] 10 mg PO QHS 02/16/12 Carboxymethylcellulose Sodium [Refresh Tears] 1 drop OP DAILYP PRN 09/16/16 Clopidogrel Bisulfate [Clopidogrel] 75 mg PO DAILY 09/16/16 Pantoprazole Sodium 40 mg PO QAM 05/09/19 Acetaminophen with Codeine [Acetaminop-Codein 240-24 mg/10] 10 ml PO Q8H #200 ml 05/14/19 Amox Tr/Potassium Clavulanate [Augmentin 875-125 mg Tablet] 1 tab PO BID #10 tablet 05/14/19 Tolvaptan [Samsca 15 mg Tablet] 15 mg PO QPM #30 tablet 05/14/19 History of Present Illiness History of Present Illness: WILBERT LOERA is a 88 year old female, She was brought to the office by the and the daughter for evaluation of prolonged persistent cough, confusion, repeated fall. Patient's was particularly concerned that she may have pulmonary embolism, he said her behavior is similar to when she had pulmonary embolism previously. Patient was somewhat confused in the office, she was not able to relate most of her symptoms, most of the history was obtained from the and the daughter, she was in the wheelchair, typically she is very healthy she only come to the office once a year for annual wellness evaluation. I felt patient needed to be admitted to the hospital because of the acuity of her illness and because of her confusion. Though the oxygen saturat ion in the office was 92 to 95% despite the fact that on auscultation of the chest she sounds crackles/wheezing and rhonchi. The initial metabolic profile revealed severe hyponatremia, sodium 114.2. The serum osmolality is low but the urine osmolality is more than 100 consistent with SIADH in the context of normal extracellular volume.The family also stated that patient has been falling more frequently recently the last few days Hospital Course Hospital Course: Patient was admitted for the management of aspiration pneumonia, severe hyponatremia, metabolic encephalopathy. She was empirically treated with intravenous Unasyn, normal saline, bronchodilators,On admission she had severe hyponatremia, the serum sodium was 114 she was cautiously treated with normal saline at 50 cc/h until 125 mg percent of sodium after which the normal saline was discontinued and patient was started on tolvaptan 15 mg PO daily . She has a history of SIADH, patient has progressively improved, she will be discharged home today Physical Exam Vital Signs: Temp Pulse Resp BP Pulse Ox 98.5 F 78 18 146/61 H 95 05/14/19 15:58 05/14/19 15:58 05/14/19 15:58 05/14/19 15:58 05/14/19 15:58 Intake & Output 05/13/19 05/14/19 05/15/19 06:59 06:59 06:59 Intake Total 2240 1234 100 Output Total 4330 4650 Balance -2089 -3415 100 Weight 74.2 kg 72.9 kg General appearance: PRESENT: no acute distress Eye exam: PRESENT: PERRLA Respiratory exam: PRESENT: clear to auscultation matt, rhonchi Cardiovascular exam: PRESENT: +S1, +S2 GI/Abdominal exam: PRESENT: soft Neurological exam: PRESENT: alert Results Laboratory Results: WBC 8.2 10^3/uL (4.0-10.5) 05/14/19 05:07 RBC 4.47 10^6/uL (3.72-5.28) 05/14/19 05:07 Hgb 13.8 g/dL (12.0-15.5) 05/14/19 05:07 Hct 39.0 % (36.0-47.0) 05/14/19 05:07 MCV 87 fl (80-97) 05/14/19 05:07 MCH 30.8 pg (27.0-33.4) 05/14/19 05:07 MCHC 35.3 g/dL (32.0-36.0) 05/14/19 05:07 RDW 13.1 % (11.5-14.0) 05/14/19 05:07 Plt Count 419 10^3/uL (150-450) 05/14/19 05:07 Lymph % (Auto) Not Reportable 05/13/19 11:55 [place] % (Auto) Not Reportable 05/13/19 11:55 Eos % (Auto) Not Reportable 05/13/19 11:55 Baso % (Auto) Not Reportable 05/13/19 11:55 Absolute Neuts (auto) Not Reportable 05/13/19 11:55 Absolute Lymphs (auto) Not Reportable 05/13/19 11:55 Absolute Monos (auto) Not Reportable 05/13/19 11:55 Absolute Eos (auto) Not Reportable 05/13/19 11:55 Absolute Basos (auto) Not Reportable 05/13/19 11:55 Total Counted 100 05/13/19 11:55 Seg Neutrophils % Not Reportable 05/13/19 11:55 Seg Neuts % (Manual) 65 % (42-78) 05/13/19 11:55 Lymphocytes % (Manual) 24 % (13-45) 05/13/19 11:55 Atypical Lymphs % 6 % (0) 05/13/19 11:55 Monocytes % (Manual) 5 % (3-13) 05/13/19 11:55 Eosinophils % (Manual) 0 % (0-6) 05/13/19 11:55 Basophils % (Manual) 0 % (0-2) 05/13/19 11:55 Abs Neuts (Manual) 5.1 10^3/uL (1.7-8.2) 05/13/19 11:55 Abs Lymphs (Manual) 2.4 10^3/uL (0.5-4.7) 05/13/19 11:55 Abs Monocytes (Manual) 0.4 10^3/uL (0.1-1.4) 05/13/19 11:55 Absolute Eos (Manual) 0.0 10^3/uL (0.0-0.6) 05/13/19 11:55 Abs Basophils (Manual) 0.0 10^3/uL (0.0-0.2) 05/13/19 11:55 Clumped Platelets PRESENT 05/12/19 10:25 Platelet Comment ADEQUATE 05/13/19 11:55 RBC Morph Comment NORMO-CYTIC/CHROMIC 05/13/19 11:55 D-Dimer 1.02 ug/mL (0.00-0.50) H 05/09/19 18:18 Sodium 135.4 mmol/L (137-145) L 05/14/19 05:07 Potassium 4.3 mmol/L (3.6-5.0) 05/14/19 05:07 Chloride 97 mmol/L (98-107) L 05/14/19 05:07 Carbon Dioxide 26 mmol/L (22-30) 05/14/19 05:07 Anion Gap 12 (5-19) 05/14/19 05:07 BUN 12 mg/dL (7-20) 05/14/19 05:07 Creatinine 0.83 mg/dL (0.52-1.25) 05/14/19 05:07 Est GFR ( Amer) > 60 (>60) 05/14/19 05:07 Est GFR (MDRD) Non-Af > 60 (>60) 05/14/19 05:07 Glucose 113 mg/dL (75-110) H 05/14/19 05:07 Serum Osmolality 233 mOsm/kg (275-301) L 05/09/19 18:26 Calcium 9.9 mg/dL (8.4-10.2) 05/14/19 05:07 Magnesium 1.9 mg/dL (1.6-2.3) 05/11/19 10:36 Total Bilirubin 0.7 mg/dL (0.2-1.3) 05/14/19 05:07 Direct Bilirubin 0.4 mg/dL (0.0-0.4) 05/14/19 05:07 Neonat Total Bilirubin Not Reportable 05/14/19 05:07 Neonat Direct Bilirubin Not Reportable 05/14/19 05:07 Neonat Indirect Bili Not Reportable 05/14/19 05:07 AST 43 U/L (14-36) H 05/14/19 05:07 ALT 24 U/L (<35) 05/14/19 05:07 Alkaline Phosphatase 53 U/L (38-126) 05/14/19 05:07 Total Protein 7.3 g/dL (6.3-8.2) 05/14/19 05:07 Albumin 4.0 g/dL (3.5-5.0) 05/14/19 05:07 Globulin 3.4 g/dL (2.2-3.9) 05/10/19 05:29 Alb/Glob Ratio Alt Meth 1.0 (0.7-1.7) 05/10/19 05:29 Gwbge-8-Sfmfgzrvu 0.3 g/dL (0.0-0.4) 05/10/19 05:29 Rtslj-4-Wazgvmhrq 1.1 g/dL (0.4-1.0) H 05/10/19 05:29 Beta Globulins 0.9 g/dL (0.7-1.3) 05/10/19 05:29 Gamma Globulins 1.2 g/dL (0.4-1.8) 05/10/19 05:29 M-Timbo Not Observed g/dL (Not Observ) 05/10/19 05:29 TSH 1.45 uIU/mL (0.47-4.68) 05/09/19 18:18 Free T4 1.20 ng/dL (0.78-2.19) 05/09/19 18:18 Immunoglobulin A 272 mg/dL (64-422) 05/10/19 05:29 Immunoglobulin G 1160 mg/dL (700-1600) 05/10/19 05:29 Immunoglobulin M 140 mg/dL (26-217) 05/10/19 05:29 Serum Immunofixation Comment (.) 05/10/19 05:29 Immunofixation Note Comment (.) 05/10/19 05:29 Urine Color STRAW 05/14/19 11:00 Urine Appearance CLEAR 05/14/19 11:00 Urine pH 8.0 (5.0-9.0) 05/14/19 11:00 Ur Specific [place] 1.008 05/14/19 11:00 Urine Protein NEGATIVE mg/dL (NEGATIVE) 05/14/19 11:00 Urine Glucose (UA) NEGATIVE mg/dL (NEGATIVE) 05/14/19 11:00 Urine Ketones NEGATIVE mg/dL (NEGATIVE) 05/14/19 11:00 Urine Blood NEGATIVE (NEGATIVE) 05/14/19 11:00 Urine Nitrite NEGATIVE (NEGATIVE) 05/14/19 11:00 Urine Bilirubin NEGATIVE (NEGATIVE) 05/14/19 11:00 Urine Urobilinogen NEGATIVE mg/dL (<2.0) 05/14/19 11:00 Ur Leukocyte Esterase NEGATIVE (NEGATIVE) 05/14/19 11:00 Urine WBC (Auto) 0 /HPF 05/14/19 11:00 Urine RBC (Auto) 0 /HPF 05/14/19 11:00 Urine Bacteria (Auto) TRACE /HPF 05/10/19 01:12 Squamous Epi Cells Auto <1 /HPF 05/14/19 11:00 Urine Mucus (Auto) RARE /LPF 05/14/19 11:00 Urine Osmolality 299 mOsm/kg (300-900) L 05/10/19 01:12 Urine Creatinine 53.3 mg/dL (15-278) 05/10/19 01:12 Protein/Creatinin Ratio 1.4 mg/mg (0.0-0.2) H 05/10/19 01:12 Urine Sodium 28 mmol/L (30-90) L 05/10/19 01:12 Urine Potassium 19.9 mmol/L (22-164) L 05/10/19 01:12 Urine Total Protein 41.6 mg/dL (Not Estab.) 05/10/19 16:15 Urine Albumin 65.8 % (.) 05/10/19 16:15 U Wqnzc-7-Ztkfzdai 5.9 % (.) 05/10/19 16:15 U Sjfny-0-Qdigczsc 6.6 % (.) 05/10/19 16:15 U Beta Globulin 11.8 % (.) 05/10/19 16:15 U Gamma Globulin 9.9 % (.) 05/10/19 16:15 U Random M-Timbo (%) Not Observed % (Not Observ) 05/10/19 16:15 Urine PEP Note Comment (.) 05/10/19 16:15 Urine Ascorbic Acid NEGATIVE (NEGATIVE) 05/14/19 11:00 Albumin (ZULEYMA) 3.3 g/dL (2.9-4.4) 05/10/19 05:29 Impressions: Chest/Abdomen CTA 05/10/19 00:00 IMPRESSION: 1. Patchy areas of atelectasis in both lower lobes, with endobronchial material suspicious for acute bronchitis. 2. No CT evidence for pulmonary embolism 3. Atherosclerosis, including coronary artery calcifications. 4. Hiatal hernia. Possibility of aspiration pneumonitis should be considered. Please correlate with recent clinical history. Stroke Is this a Stroke Patient?: No Acute Heart Failure - Is this a Heart Failure Patient?: No
== END 2019-05-14 16:34 | disposition home or self-care (01) | DRG 177 ==
LOC: 3S 17:13
PROVIDERS: ADMIT Internal Medicine; ATTEND Internal Medicine
DX: J69.0 Pneumonitis due to inhalation of food and vomit (principal); G93.41 Metabolic encephalopathy; E22.2 Syndrome of inappropriate secretion of antidiuretic hormone; E87.1 Hypo-osmolality and hyponatremia; I10 Essential (primary) hypertension; E78.5 Hyperlipidemia, unspecified; E87.6 Hypokalemia; Z86.718 Personal history of other venous thrombosis and embolism; Z79.02 Long term (current) use of antithrombotics/antiplatelets; Z91.81 History of falling; Z86.711 Personal history of pulmonary embolism; Z87.891 Personal history of nicotine dependence; Z79.82 Long term (current) use of aspirin; Z79.899 Other long term (current) drug therapy; Z88.8 Allergy status to other drugs, medicaments and biological substances
CPT/HCPCS: 36415; 71045; 71275; 80048; 80053; 81001; 82570; 83735; 83930; 83935; 84133; 84156; 84166; 84300; 84439; 84443; 85025; 85379; 86320; 87040; 87070; 87086; 93005; 93010; 94799; A9270-GY; J0295; J1650; J3490; J7030; J7050